=== PATIENT | female | born 2005 | race Caucasian/White ===

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

== ENCOUNTER → 2024-01-06 15:15 | Outpatient (BNVA) | payer MEDICAID, SELFPAY | PROVIDERS: Family Provider Nurse Practitioner; PCP Nurse Practitioner Family; Visit Provider Obstetrics & Gynecology | DX: Z34.00 Encounter for supervision of normal first pregnancy, unspecified trimester (principal) | CPT/HCPCS: 81000 ==

== ENCOUNTER → 2024-01-20 14:11 | Outpatient (BNVA) | payer MEDICAID, SELFPAY | PROVIDERS: Family Provider Nurse Practitioner; PCP Nurse Practitioner Family; Visit Provider Obstetrics & Gynecology | DX: Z36.2 Encounter for other antenatal screening follow-up (principal); Z3A.19 19 weeks gestation of pregnancy | CPT/HCPCS: 76805 ==

== ENCOUNTER → 2024-01-27 13:57 | Outpatient (BNVA) | payer MEDICAID, SELFPAY | PROVIDERS: Family Provider Nurse Practitioner; PCP Nurse Practitioner Family; Visit Provider Obstetrics & Gynecology | DX: Z34.02 Encounter for supervision of normal first pregnancy, second trimester (principal) | CPT/HCPCS: 81000 ==

== ENCOUNTER → 2024-02-24 13:18 | Outpatient (BNVA) | payer MEDICAID, SELFPAY | PROVIDERS: Family Provider Nurse Practitioner; PCP Nurse Practitioner Family; Visit Provider Nurse Practitioner Women's Health | DX: Z34.02 Encounter for supervision of normal first pregnancy, second trimester (principal) | CPT/HCPCS: 81000 ==

== ENCOUNTER → 2024-02-25 15:51 | Outpatient (BNVA) | payer MEDICAID, SELFPAY | PROVIDERS: Family Provider Nurse Practitioner; PCP Nurse Practitioner Family; Visit Provider Internal Medicine Cardiovascular Disease | DX: R94.31 Abnormal electrocardiogram [ECG] [EKG] (principal); I49.8 Other specified cardiac arrhythmias; R07.9 Chest pain, unspecified | CPT/HCPCS: 93005 ==

== ENCOUNTER → 2024-03-18 13:23 | Outpatient (BNVA) | payer MEDICAID, SELFPAY | PROVIDERS: Family Provider Nurse Practitioner; PCP Nurse Practitioner Family; Visit Provider Nurse Practitioner Women's Health | DX: Z34.02 Encounter for supervision of normal first pregnancy, second trimester (principal) | CPT/HCPCS: 82950; 84315 ==

== ENCOUNTER → 2024-03-24 08:00 | Outpatient (BNVA) | payer MEDICAID, SELFPAY | PROVIDERS: Family Provider Nurse Practitioner; PCP Nurse Practitioner Family; Visit Provider Obstetrics & Gynecology | DX: Z34.02 Encounter for supervision of normal first pregnancy, second trimester (principal) | CPT/HCPCS: 82951; 82952 ==

== ENCOUNTER 2024-03-25 14:43 | Outpatient (CLI) | payer MEDICAID, SELFPAY ==
--- NOTE | 2024-03-25 15:00 | USCV_ITS ---
Darleen Page Age: 18 Gender: F : 2005 Exam Date: 03/25/2024 14:52 Ordering Phys: Trina Reilly MD ([email or web address]) Technologist: [place] [facility] [place]: murmur BP: 127 / 79 HR: 87 Rhythm: Sinus Technical Quality: Adequate MEASUREMENTS (Male / Female) Normal Values 2D ECHO LVOT Diameter 2.0 cm LV Ejection Fraction MOD 4C 74.1 % LV Ejection Fraction MOD 2C 68.4 % LV Ejection Fraction 2C AL 69.1 % LA Diameter 2.6 cm RA Systolic Volume 4C AL 31.6 ml RA Systolic Volume 4C MOD 32.0 ml LA Sys Volume AL 30.8 cm cubed LA Sys Volume Index AL 18.3 cm cubed/m squared Aorta at Sinotubular Diameter 2.3 cm IVC Diameter 1.5 cm M-MODE LA Ao Ratio MM 1.4 AV Cusp Separation MM 1.6 cm DOPPLER AV Peak Velocity 138.0 cm/s LVOT Peak Velocity 112.0 cm/s AV Area Cont Eq vti 3.2 cm squared AV Area Cont Eq pk 2.7 cm squared MV Peak Velocity 122.0 cm/s MV Area PHT 4.6 cm squared Mitral E to A Ratio 2.5 TV Peak Velocity 222.0 cm/s TR Peak Velocity 320.5 cm/s TR Peak Gradient 41.1 mmHg TR Mean Velocity 243.0 cm/s TR Mean Gradient 26.6 mmHg TR Velocity Time Integral 76.3 cm TV Peak E Velocity 88.0 cm/s PV Peak Velocity 104.0 cm/s FINDINGS Left Ventricle Normal left ventricular size and systolic function, EF 68%.No regional wall motion abnormalities. Right Ventricle The right ventricle is normal in size and function. Right Atrium The right atrium is normal in size. Left Atrium The left atrium is normal in size. Mitral Valve No morphologic abnormalities Aortic Valve No morphologic abnormalities Tricuspid Valve Trace tricuspid valve regurgitation. Estimated pulmonary artery peak systolic pressure possibly within normal limits. Because of poor Doppler signals, the PA pressure calculation is misleading Pulmonic Valve No morphologic abnormalities Pericardium Normal pericardium without effusion. Aorta Normal ascending aorta dimension. IVC Normal inferior vena cava. CONCLUSIONS Normal left ventricular size and systolic function, EF 68%.No regional wall motion abnormalities. Normal cardiac chamber sizes. Trace tricuspid valve regurgitation. The PA pressure could not be calculated properly because of the poor Doppler signals There is no pericardial effusion. There are no intracardiac masses. No similar previous studies are available for comparison Dr Trina Reilly MD [facility] (Electronically Signed) Final Date: 26 March 2024 07:32 S
== END 2024-03-25 14:44 | disposition home or self-care (01) ==
LOC: RAD 14:46
PROVIDERS: Family Provider Nurse Practitioner; PCP Nurse Practitioner Family; Visit Provider Internal Medicine Cardiovascular Disease
DX: R06.09 Other forms of dyspnea (principal)
CPT/HCPCS: 93306

== ENCOUNTER → 2024-04-06 08:12 | Outpatient (BNVA) | payer MEDICAID, SELFPAY | PROVIDERS: Family Provider Nurse Practitioner; PCP Nurse Practitioner Family; Visit Provider Obstetrics & Gynecology | DX: Z34.02 Encounter for supervision of normal first pregnancy, second trimester (principal) | CPT/HCPCS: 81000 ==

== ENCOUNTER → 2024-05-18 15:25 | Outpatient (BNVA) | payer MEDICAID, SELFPAY | PROVIDERS: Family Provider Nurse Practitioner; PCP Nurse Practitioner Family; Visit Provider Obstetrics & Gynecology | DX: Z34.02 Encounter for supervision of normal first pregnancy, second trimester (principal) | CPT/HCPCS: 84315; 87081 ==

== ENCOUNTER → 2024-05-19 13:28 | Outpatient (BNVA) | payer MEDICAID, SELFPAY | PROVIDERS: Family Provider Nurse Practitioner; PCP Nurse Practitioner Family; Visit Provider Nurse Practitioner Women's Health | DX: Z34.03 Encounter for supervision of normal first pregnancy, third trimester (principal) | CPT/HCPCS: 76816; 76820 ==

== ENCOUNTER → 2024-05-25 14:53 | Outpatient (BNVA) | payer MEDICAID, SELFPAY | PROVIDERS: Family Provider Nurse Practitioner; PCP Nurse Practitioner Family; Visit Provider Obstetrics & Gynecology | DX: Z34.03 Encounter for supervision of normal first pregnancy, third trimester (principal) | CPT/HCPCS: 84315 ==

== ENCOUNTER 2024-06-01 14:57 | Outpatient (CLI) | payer MEDICAID, SELFPAY ==
[2024-06-01] VITALS (8 sets, daily range): BP systolic 108–138; BP diastolic 66–86; PULSE 79–95; RESP 17; TEMP 35.8; BMI 24.7
== END 2024-06-01 17:17 | disposition home or self-care (01) ==
LOC: OPOB 15:07 → OBGYN 15:08
PROVIDERS: Family Provider Nurse Practitioner; PCP Nurse Practitioner Family; Visit Provider Obstetrics & Gynecology
DX: O26.893 Other specified pregnancy related conditions, third trimester (principal); Z3A.00 Weeks of gestation of pregnancy not specified; R10.9 Unspecified abdominal pain
CPT/HCPCS: 59025; 84315; 99211

== ENCOUNTER 2024-06-04 07:07 | Inpatient (IN) | payer SELFPAY ==
[2024-06-04] VITALS (84 sets, daily range): BP systolic 100–156; BP diastolic 54–89; PULSE 68–104; RESP 14–16; TEMP 36.6; O2SAT 96–99; BMI 25.0
[2024-06-04 07:50] LABS: Basophils % 0.4 %; Eosinophils # 0.1 10^3/uL (0.0-0.8); Hematocrit 34.2 % (36-47); Lymphocytes % 18.6 %; Mean Corpuscular HGB Conc 32.7 g/dL (30-55); Mean Corpuscular Hemoglobin 26.6 pg (27-33); Mean Corpuscular Volume 81.2 fl (85-98); Mean Platelet Volume 11.8 fL (7.4-10.4); Neutrophils # 7.42 10^3/uL (1.8-8.0); Neutrophils % 70.3 %; Nucleated Red Blood Cells % 0 %; Platelet Count 167 10^3/cmm (157-399); Red Blood Count 4.21 10^6/uL (3.85-5.65); Red Cell Distribution Width 12.5 % (12.1-15.1); White Blood Count 10.55 10^3/uL (4.5-13.0)
--- NOTE | 2024-06-04 07:50 | PM.OBGYHP ---
Providers/Chief Complaint Admitting Physician: Ryan Kim MD Primary JOURNEYMAN ELECTRICIAN: Logan Olivia MD Primary Care Provider: SIMRAN Tavares Chief Complaint: IOL HPI JOURNEYMAN ELECTRICIAN History of Present Illness Darleen Page is a 18 year old female G1 EDC June 10, 2024 At 39 w 1 d No complications Admitted for induction of labor No c/o + active movements Present Details : 1 Para: 0 Labs Rubella: Immune RPR: Negative GBS: Negative Medications/Allergies Home Medications ?Medication ?Instructions ?Recorded ?Confirmed ?Last Taken ?Type ichaczla-[id number] 1 mg 1 tab PO 1XD 06/04/24 06/04/24 Unknown History tablet Allergies Allergy/AdvReac Type Severity Reaction Status Date / Time No Known Allergies Allergy Verified 06/01/24 14:34 PFSH JOURNEYMAN ELECTRICIAN PFSH: Surgical History History of open heart surgery Transposition of great arteries Family History Mother Hypertension Grandmother Diabetes Other Cancer Denies family history of Ovarian cancer Heart disease Breast cancer Uterine cancer Thyroid disease Stroke Social History Smoking and tobacco/nicotine status: never used tobacco/nicotine Alcohol intake: never Substance/Drug Use: never History History History 1 Term 1 Miscarriages/Ectopic Living Children Care RENAN Calculator Estimated Delivery Date Method Current WG Current Estimate 06/10/24 Ultrasound #1 40w 4d Specific Issues/Plans : First CONGENITAL HEART DISEASE DURING : was told by parents that she had a congenital heart defect but is unsure of what it is, had surgery for this at 2, seen by Dr. Reilly on 02/25/24. ECHO showed normal heart pumping function with minimal leak in tricuspid valve. HEART MURMUR: heart murmur present on exam Vitals/I&O/Wt Last Vital Signs Temp 98.0 F 06/06/24 12:15 Pulse 86 06/06/24 12:15 Resp 16 06/06/24 12:15 BP 126/77 06/06/24 12:15 Pulse Ox 98 06/06/24 12:15 O2 Del Method Room Air 06/06/24 04:07 Physical Exam Narrative: Weight 131 lbs; 5?1? VS normal General: comfortable, awake, alert Lungs: clear Cor: RRR FH 36 cm; cephalic Cervix: 2 / 50% / -3 / posterior Ext: no edema External monitor: heart tracing good variability, + accelerations Urinary Catheter Management: Ellis: Cath Placed During This Visit: yes, but has since been removed by the nurse Reason for Continuing Indwelling Catheter: Decision to DC Catheter Urinary Catheter Date of Insertion: 06/04/24 Urinary Catheter Time of Insertion: 19:17 Date Urinary Catheter Removed: 06/04/24 Time Urinary Catheter Discontinued: 00:50 Data 06/05/24 12:57 Results Labs OB ([facility]): Obstetrics US 05/19/24 Blood Type A Positive 06/04/24 Antibody Screen Negative 06/04/24 Hct 28.1 % (36-47) L 06/05/24 Hgb 9.00 g/dL (12.4-14.8) L 06/05/24 Rho(D) Type Rh positive 06/04/24 Plt Count 130 10^3/cmm (157-399) L 06/05/24 Hep Bs Antigen Non-reactive (Nonreactive) 12/25/23 Hepatitis C Antibody Non-reactive (Nonreactive) 12/25/23 Rubella IgG Antibody 115.2 IU/mL (0.0-10.0) H 12/25/23 RPR Nonreactive (Nonreactive) 12/25/23 HIV 1&2 Ab & HIV 1 Ag Non-reactive (Non-Reactiv) 12/25/23 TSH 1.57 uIU/mL (0.27-4.20) 12/25/23 C.trachomatis RNA (TMA) Not detected (NOT DETECTED) 12/25/23 N.gonorrhoeae RNA (TMA) Not detected (NOT DETECTED) 12/25/23 T. vaginalis Amp RNA Not detected (NOT DETECTED) 12/25/23 Chlamydia/GC Comment See note 12/25/23 Glucose 1 Hr 50 gm 154 mg/dL (85-140) H 03/18/24 Gest Glucose Tolerance mg/dL 03/24/24 Ser , Semi-Qnt 576035.00 mIU/mL 12/09/23 HCG, Qual Positive (Negative) H 12/09/23 Urine Opiates Screen Negative ng/mL (Negative) 12/25/23 Ur Barbiturates Screen Negative ng/mL (Negative) 12/25/23 Ur Phencyclidine Scrn Negative ng/mL (Negative) 12/25/23 Ur Amphetamines Screen Negative ng/mL (Negative) 12/25/23 U Benzodiazepines Scrn Negative ng/mL (Negative) 12/25/23 Urine Cocaine Screen Negative ng/mL (Negative) 12/25/23 U Marijuana (THC) Screen Negative ng/mL (Negative) 12/25/23 Micro Urine Specimen 12/25/23 A&P Assessment and plan (1) : 39 w 1 d Fetus reassuring Admitted for induction of labor Plan Cytotec 25 ug intravaginal x one Qualifiers: Weeks of gestation: 25 weeks Qualified Code(s): Z3A.25 - 25 weeks gestation of PDMP PDMP Reviewed: Not Reviewed Attestations Medical Necessity Statement*: patient at 39 w 1 d, admitted for induction of labor Coding Level of Care Code Acute Code for Chg Fwd Diagnoses 25 weeks gestation of Z3A.25 Weeks of gestation: 25 weeks Time Spent (min) 60
[2024-06-04] MEDS: miSOPROStol 100 mcg tablet 25 MCG VAGINAL (08:50)
[2024-06-04] MEDS: fentaNYL 50 mcg/mL INJ 2mL IVP (16:45)
--- NOTE | 2024-06-04 16:57 | P.ANESASSM_ITS ---
Pre-Anesthetic Assessment Height/Weight: Height 1.55 m Weight 60.101 kg Pulse Resp BP O2 Del Method 74 14 120/72 Room Air 06/04/24 16:52 06/04/24 16:45 06/04/24 16:52 06/04/24 07:37 Epidural Familial anesthetic complications: None Was Beta Earnest taken within 24 hours: N/A Was Clonidine taken within 24 hours: N/A Last intake: 1200 solid food Social No alcohol and No tobacco Exam alert, oriented x 3, clear to auscultation bilaterally and regular rate & rhythm Airway Submandibular: within normal limits Cervical ROM: within normal limits Mallampati: Class III Dentition: full History/ROS No significant history except as noted and No significant complaints Pulmonary None reported CV/HEM Transposition of the great arteries. Surgery at age 3. No complications and no issues since. CONCLUSIONS Normal left ventricular size and systolic function, EF 68%.No regional wall motion abnormalities. Normal cardiac chamber sizes. Trace tricuspid valve regurgitation. The PA pressure could not be calculated properly because of the poor Doppler signals There is no pericardial effusion. There are no intracardiac masses. No similar previous studies are available for comparison None reported Hepatic None reported GI Gastroesophageal Reflux Disease Metabolic None reported Musc/skel None reported Neuropsych None reported Anesthetic Plan ASA status: 3 Anesthesia: Anesthesia Evaluation, General and Regional (specify below) (Epidural) Risk of > 500 ml blood loss (7ml/kg in children): Yes, adequate IV access and fluids planned Medications/Allergies Home Medications ?Medication ?Instructions ?Recorded ?Confirmed ?Last Taken ?Type tqwcilet-mrd-Iu-FA 1 mg 1 tab PO 1XD 06/04/24 06/04/24 Unknown History tablet Allergies Allergy/AdvReac Type Severity Reaction Status Date / Time No Known Allergies Allergy Verified 06/01/24 14:34 Current Medications Generic Name Dose Route Start Last Admin Trade Name Freq PRN Reason Stop Dose Admin Fentanyl 25 - 100 mcg 06/04/24 07:37 06/04/24 16:45 Fentanyl 50 Mcg/Ml Inj 2ml IVP 25 mcg Q1H PRN Administration SEVERE PAIN PFSH Anesthesia Surgical History History of open heart surgery Transposition of great arteries Family History Mother Hypertension Grandmother Diabetes Other Cancer Denies family history of Ovarian cancer Heart disease Breast cancer Uterine cancer Thyroid disease Stroke Social History Smoking and tobacco/nicotine status: never used tobacco/nicotine Alcohol intake: never Substance/Drug Use: never Female Reproductive History : 1 Para: 0 Spontaneous abortions: No Data Anesthesia 06/04/24 07:25 Short CBC 06/04/24 Range/Units 07:25 WBC 10.55 (4.5-13.0) 10^3/uL Hgb 11.20 L (12.4-14.8) g/dL Hct 34.2 L (36-47) % MCV 81.2 L (85-98) fl Plt Count 167 (157-399) 10^3/cmm Neut % (Auto) 70.3 % Neut # (Auto) 7.42 (1.8-8.0) 10^3/uL Blood Bank 06/04/24 07:25 Blood Type A Positive Rho(D) Type Rh positive Antibody Screen Negative Cardiac Studies: 2 Echocardiogram 03/25/24
[2024-06-04] MEDS: ondansetron 2 mg/ML SDV 2 mL 4 MG IVP ×2 (17:40→22:16)
[2024-06-04] MEDS: sodium chloride 0.9% 1,000 ML 999 ML IV (17:41)
[2024-06-04] MEDS: ROPivacaine syringe 100 MG/50 ML SYRINGE 10 MG EPIDURAL ×2 (18:19→21:49)
--- NOTE | 2024-06-04 18:24 | ANES.PROC ---
Anesthesia Procedures Procedure/Date: 06/04/24 Epidural: Time Out Performed: Yes Consents Signed: Procedure Consent and NPO Consent Consent: requested by attending/covering physician, from patient, risks and benefits reviewed and patient agrees to proceed Lumbar Level: L3-L4 Epidural position: sitting Epidural procedure: sterile prep of area (betadine), 1% lidocaine to numb the area (3 mLs), neg for paresthesia, test dose given, 1.5% xylocaine 1:200k epi (3 mL/2 mL), placed PCEA, no systemic response, sterile dressing applied, L.U.D. no apparent complications and 0.2% Ropiavacaine @ mls/hr (10 mLs/hr) Additional Comments: ROSALIO 6cm, catheter threaded to 11cm. Negative aspiration for blood and CSF. Patient tolerated well.
[2024-06-04] MEDS: dextrose 5%-lactated ringers 1,000 ML 125 ML IV (18:45)
[2024-06-05] VITALS (17 sets, daily range): BP systolic 117–140; BP diastolic 58–97; PULSE 76–123; RESP 16; TEMP 36.6–37.2; O2SAT 98; BMI 25.0
--- NOTE | 2024-06-05 00:20 | PM.DELIVERY ---
Delivery Note: Date of delivery: June 05, 2024 Pre-delivery diagnoses: 39 weeks gestation induction of labor Post-delivery diagnoses: 39 weeks gestation induction of labor vacuum-assisted vaginal delivery Procedure: induction of labor vacuum-assisted vaginal delivery Op report anesthesia: Epidural Delivering Physician: Logan Olivia MD Estimated blood loss (mL): 300 Findings: Patient complete head, MIKHAIL, at +3 station Patient has been pushing for 60 minutes, + maternal exhaustion Vacuum applied. Mild traction used through one uterine contraction Brought head to perineum Shoulders delivered easily Cord gases obtained No episiotomy / lacerations EBL: 300 cc No complications Pre-Delivery Course: normal labor course fetus was reassuring throughout Delivery: vacuum-assisted vaginal delivery Post-Delivery Status: good History History History 1 Term 0 Miscarriages/Ectopic Living Children A&P Assessment and plan (1) Vaginal delivery: PDMP PDMP Reviewed: Not Reviewed Coding Level of Care Code Acute Code for Chg Fwd Diagnoses Vaginal delivery O80 Time Spent (min) 60
[2024-06-05] MEDS: oxytocin 30 UNIT/500 ML BAG 600 UNIT IV (00:53)
[2024-06-05] MEDS: HYDROcodone-acetaminophen 5-325 mg Tablet PO ×2 (05:06→23:01)
[2024-06-05] MEDS: PRENATAL VIT NO.130/IRON/FOLIC 1 EACH TABLET PO (08:14)
[2024-06-05] MEDS: docusate sodium 100 mg Capsule PO ×2 (08:14→20:27)
[2024-06-05] MEDS: ibuprofen 800 mg tablet PO ×3 (08:14→20:27)
[2024-06-05] MEDS: lanolin oint 7 gm 1 APPLIC TOPICAL (09:21)
[2024-06-05] MEDS: benzocaine-menthol 78 gm Canister 1 SPRAY TOPICAL (09:21)
[2024-06-05 13:13] LABS: Hematocrit 28.1 % (36-47); Mean Corpuscular Hemoglobin 27.2 pg (27-33); Mean Corpuscular Volume 84.9 fl (85-98); Mean Platelet Volume 11.5 fL (7.4-10.4); Platelet Count 130 10^3/cmm (157-399); Red Blood Count 3.31 10^6/uL (3.85-5.65); Red Cell Distribution Width 12.9 % (12.1-15.1); White Blood Count 17.18 10^3/uL (4.5-13.0)
--- NOTE | 2024-06-05 16:57 | ANE.PACU2 ---
Inpatient post-anesthesia follow up: Airway intact: Yes Vital signs: Temperature 98.0 F Pulse Rate 86 Respiratory Rate 16 Blood Pressure 126/77 Pulse Oximetry 98 Oxygen Delivery Me thod Room Air Oxygen Flow Rate Fraction of Inspir ed Oxygen Hydration adequate: Yes Nausea and vomiting: No Pain level: 1 Mental status: Baseline Epidural Start/End: Epidural Start Date: 06/04/24 Epidural Start Time: 17:57 Epidural End Date: 06/05/24 Epidural End Time: 01:05
[2024-06-06 04:07] VITALS: BP 101/58; PULSE 78; RESP 17; TEMP 36.9; O2SAT 99
[2024-06-06] MEDS: docusate sodium 100 mg Capsule PO (08:45)
[2024-06-06] MEDS: PRENATAL VIT NO.130/IRON/FOLIC 1 EACH TABLET PO (08:45)
[2024-06-06] MEDS: ibuprofen 800 mg tablet PO (08:45)
--- NOTE | 2024-06-06 11:23 | PM.OBGYDC ---
Discharge Providers EXPERIMENTAL ROCKETSLED MECHANIC Date of Admission: 06/04/24 07:07 Date of Discharge: 06/06/24 Attending Provider at Admission: Ryan Kim MD Attending Provider at Discharge: Ryan Kim MD Primary Care Provider: SIMRAN Tavares Diagnoses at Discharge Discharge Diagnosis (1) Vaginal delivery: Details from hospital stay: 18-year-old female G1, P1 delivered via vacuum-assisted vaginal delivery on 06/06/2024. Delivery was uncomplicated as well as course. Patient is ambulating, tolerating regular diet and voiding without problems, she denies headaches, blurred vision or dizziness, no shortness of breath or chest pain. Patient is breast-feeding. as well as discharge expectations have been reviewed with patient patient verbalizes understanding. Anemia was reviewed with patient and patient advised to continue her vitamins throughout breast-feeding. VSS, afebrile Abdomen?soft, fundus firm Lochia light Extremities?no edema, negative Homans' sign. Status: Acute Reason for Visit Reason for Visit: IOL Hospital Course Hospital Course See above for hospital stay details Information Peripartum Data: Delivery Method: Vaginal Laceration description: None Physical Exam Urinary Catheter Management: Ellis: Cath Placed During This Visit: yes, but has since been removed by the nurse Reason for Continuing Indwelling Catheter: Decision to DC Catheter Urinary Catheter Date of Insertion: 06/04/24 Urinary Catheter Time of Insertion: 19:17 Date Urinary Catheter Removed: 06/04/24 Time Urinary Catheter Discontinued: 00:50 History History History 1 Term 1 Miscarriages/Ectopic Living Children Discharge Data Studies Completed and Pending Laboratory Results WBC 17.18 10^3/uL (4.5-13.0) H 06/05/24 12:57 RBC 3.31 10^6/uL (3.85-5.65) L 06/05/24 12:57 Hgb 9.00 g/dL (12.4-14.8) L 06/05/24 12:57 Hct 28.1 % (36-47) L 06/05/24 12:57 MCV 84.9 fl (85-98) L 06/05/24 12:57 MCH 27.2 pg (27-33) 06/05/24 12:57 MCHC 32.0 g/dL (30-55) 06/05/24 12:57 RDW 12.9 % (12.1-15.1) 06/05/24 12:57 Plt Count 130 10^3/cmm (157-399) L 06/05/24 12:57 MPV 11.5 fL (7.4-10.4) H 06/05/24 12:57 Neut % (Auto) 70.3 % 06/04/24 07: Lymph % (Auto) 18.6 % 06/04/24 07: Travis % (Auto) 9.0 % 06/04/24 07:25 Eos % (Auto) 1.0 % 06/04/24 07: Baso % (Auto) 0.4 % 06/04/24 07: Neut # (Auto) 7.42 10^3/uL (1.8-8.0) 06/04/24 07: Lymph # (Auto) 2.0 10^3/uL (1.5-6.5) 06/04/24 07:25 Travis # (Auto) 1.0 10^3/uL (0.2-0.9) H 06/04/24 07:25 Eos # (Auto) 0.1 10^3/uL (0.0-0.8) 06/04/24 07:25 Baso # (Auto) 0.0 10^3/uL (0.0-0.1) 06/04/24 07:25 Nucleated RBC % (auto) 0 % 06/04/24 07: Nucleated RBCs # 0.0 /100WBC 06/04/24 07:25 Blood Type A Positive 06/04/24 07:25 Rho(D) Type Rh positive 06/04/24 07:25 Antibody Screen Negative 06/04/24 07:25 Vitals Last Vital Signs Temp 98.4 F 06/06/24 04:07 Pulse 78 06/06/24 04:07 Resp 17 06/06/24 04:07 BP 101/58 06/06/24 04:07 Pulse Ox 99 06/06/24 04:07 O2 Del Method Room Air 06/06/24 04:07 Results Labs OB ([facility] [place]): Obstetrics US 05/19/24 Blood Type A Positive 06/04/24 Antibody Screen Negative 06/04/24 Hct 28.1 % (36-47) L 06/05/24 Hgb 9.00 g/dL (12.4-14.8) L 06/05/24 Rho(D) Type Rh positive 06/04/24 Plt Count 130 10^3/cmm (157-399) L 06/05/24 Hep Bs Antigen Non-reactive (Nonreactive) 12/25/23 Hepatitis C Antibody Non-reactive (Nonreactive) 12/25/23 Rubella IgG Antibody 115.2 IU/mL (0.0-10.0) H 12/25/23 RPR Nonreactive (Nonreactive) 12/25/23 HIV 1&2 Ab & HIV 1 Ag Non-reactive (Non-Reactiv) 12/25/23 TSH 1.57 uIU/mL (0.27-4.20) 12/25/23 C.trachomatis RNA (TMA) Not detected (NOT DETECTED) 12/25/23 N.gonorrhoeae RNA (TMA) Not detected (NOT DETECTED) 12/25/23 T. vaginalis Amp RNA Not detected (NOT DETECTED) 12/25/23 Chlamydia/GC Comment See note 12/25/23 Glucose 1 Hr 50 gm 154 mg/dL (85-140) H 03/18/24 Gest Glucose Tolerance mg/dL 03/24/24 Ser , Semi-Qnt 717566.00 mIU/mL 12/09/23 HCG, Qual Positive (Negative) H 12/09/23 Urine Opiates Screen Negative ng/mL (Negative) 12/25/23 Ur Barbiturates Screen Negative ng/mL (Negative) 12/25/23 Ur Phencyclidine Scrn Negative ng/mL (Negative) 12/25/23 Ur Amphetamines Screen Negative ng/mL (Negative) 12/25/23 U Benzodiazepines Scrn Negative ng/mL (Negative) 12/25/23 Urine Cocaine Screen Negative ng/mL (Negative) 12/25/23 U Marijuana (THC) Screen Negative ng/mL (Negative) 12/25/23 Micro Urine Specimen 12/25/23 Discharge Plan Discharge Patient Disposition: Home Condition: Stable Prescriptions: No Action 1 mg Tablet 1 tab PO 1XD Discharge Orders: Discharge Order (Routine); Ordered 06/06/24 Ordered By: Nayeli Shah Referrals: Suzy Lopez NP [Nurse Practitioner] - 07/15/24 1:00 pm (* Your 6 week appointment is on 07/15/2024 at 1:00pm) Discharge Diet: Regular Discharge Activity: Increase activity as tolerated Patient Instructions: Depression (DC), Opioid Safety (DC), Preeclampsia and Eclampsia After Delivery (GEN), Hemorrhage (DC), OB Discharge Report, OB Food/Drug Interaction Guide, Opioid Safety, OB Home Care, OB Vaginal Deliveries - [facility], Abnormal Bleeding Activity Restrictions/Additional Instructions: No strenuous activity, No sexual intercourse x 6 wks. Assessment: s/p Mityvac assisted Vaginal delivery Plan of Treatment: DC to home Pt to call for F/U apptmt for 4-6 wks Discharge Attestations EXPERIMENTAL ROCKETSLED MECHANIC Time Spent in Discharge Care*: less than 30 min Coding Level of Care Code Acute Code for Chg Fwd Diagnoses Vaginal delivery O80
[2024-06-06 12:15] VITALS: BP 126/77; PULSE 86; RESP 16; TEMP 36.7; O2SAT 98
== END 2024-06-06 12:25 | disposition home or self-care (01) | DRG 807 ==
LOC: OPOB 07:08 → OBGYN 07:08
PROVIDERS: Obstetrics & Gynecology; Admitting Provider Obstetrics & Gynecology; Family Provider Nurse Practitioner; PCP Nurse Practitioner Family; Visit Provider Obstetrics & Gynecology
DX: O75.81 Maternal exhaustion complicating labor and delivery (principal); Z37.0 Single live birth; Z3A.39 39 weeks gestation of pregnancy; O75.89 Other specified complications of labor and delivery; R01.1 Cardiac murmur, unspecified; K21.9 Gastro-esophageal reflux disease without esophagitis
CPT/HCPCS: 36415; 51702; 59025; 59409; 85025; 85027; 86850; 86900; J2405; J2590; J2795; J3010; J7030; J7121